=== PATIENT | male | born 1950 | race Caucasian/White ===

== ENCOUNTER 2017-10-03 06:49 | Day surgery (SDC) | payer OTHER ==
[2017-10-03] MEDS ORDERED: ceFAZolin 2 GM/SWFI 2 GM/20 ML SYR IVP ONE (06:55)
[2017-10-03] MEDS ORDERED: LR 1,000 ML IV ONE (06:57)
[2017-10-03] MEDS ORDERED: LIDOCAINE 1% 2 ML INJ ID PRN (06:57)
[2017-10-03] MEDS ORDERED: BUPIVACAINE 0.5% 30 ML SDV ONE (07:00)
[2017-10-03] MEDS ORDERED: fentaNYL 100 MCG/2 ML INJ ONE ×2 (07:05→07:57)
[2017-10-03] MEDS ORDERED: PROPOFOL 200 MG/20 ML VIAL ONE (07:05)
[2017-10-03] MEDS ORDERED: LIDOCAINE 2% 5 ML SDV ONE (07:06)
[2017-10-03] MEDS ORDERED: DEXAMETHASONE 4 MG/ML VIAL ONE (07:06)
[2017-10-03] MEDS ORDERED: ONDANSETRON 4 MG/2 ML VIAL ONE (07:06)
[2017-10-03] MEDS ORDERED: SUGAMMADEX SODIUM 200 MG/2 ML VIAL IVP ONE (07:06)
[2017-10-03] MEDS ORDERED: ROCURONIUM 50 MG/5 ML VIAL ONE (07:06)
[2017-10-03] MEDS ORDERED: KETOROLAC 30 MG/1 ML SDV ONE (07:07)
--- NOTE | 2017-10-03 07:13 | PDHPUP ---
History & Physical Update H&P update statement: This history and physical update is based on an assessment of the patient which was completed after admission or registration (within 24 hours), but prior to the surgery/procedure.
[2017-10-03] MEDS ORDERED: MIDAZOLAM 2 MG/2 ML VIAL IVP ONE (07:25)
--- NOTE | 2017-10-03 07:25 | PDANEPAE ---
ANE History of Present Illness p/f lap inguinal hernia repair ANE Past Medical History - Cardiovascular History Hx Hypertension: No Hx Arrhythmias: No Hx Chest Pain: No Hx Coronary Artery / Peripheral Vascular Disease: No Hx CHF / Valvular Disease: No Hx Palpitations: No - Pulmonary History Hx COPD: No Hx Asthma/Reactive Airway Disease: No Hx Recent Upper Respiratory Infection: No Hx Oxygen in Use at Home: No Hx Sleep Apnea: No Sleep Apnea Screening Result - Last Documented: Negative - Neurologic History Hx Cerebrovascular Accident: No Hx Seizures: No Hx Dementia: No - Endocrine History Hx Diabetes: No Hypothyroid: No Hyperthyroid: No Obesity: no - Renal History Hx Renal Disorders: No - Liver History Hx Hepatic Disorders: No - Neurological & Psychiatric Hx Hx Neurological and Psychiatric Disorders: No Neurological / Psychiatric History Comment: RECENTLY TRANSFERRED FROM [place] FOR JOB - Cancer History Hx Cancer: No - Congenital Disorder History Hx Congenital Disorders: No - GI History Hx Gastrointestinal Disorders: No - Other Health History Other Health History: WEARS GLASSES. DRY SKIN SINCE MOVING TO [place] - Chronic Pain History Chronic Pain: No - Surgical History Prior Surgeries: DEVIATED SEPTUM REPAIR 1979. COLONOSCOPIES X2 ANE Review of Systems Review of systems is: negative Review of Systems: - Exercise capacity METS (RN): 4 METS ANE Patient History - Allergies Allergies/Adverse Reactions: No Allergies [NKDA] Allergy (Verified 10/01/17 14:36) - Home Medications Home medications: home medication list seen and reviewed Home Medications: NK [No Known Home Meds] 10/02/17 [Last Taken Unknown] - Anes Hx Anes Hx: no prior problems - Smoking Hx Smoking Status: Former smoker - Family Anes Hx Family Hx Anesthesia Complications: NONE ANE Labs/Vital Signs - Vital Signs Blood Pressure: 110/63 Heart Rate: 55 Respiratory Rate: 18 O2 Sat (%): 98 Height: 170.18 cm Weight: 66.678 kg ANE Physical Exam - Airway Neck exam: FROM Mallampati Score: Class 1 Mouth exam: normal dental/mouth exam - Pulmonary Pulmonary: no respiratory distress - Cardiovascular Cardiovascular: regular rate and rhythym - ASA Status ASA Status: I ANE Anesthesia Plan Anesthesia Plan: general endotracheal anesthesia
--- NOTE | 2017-10-03 08:53 | POSTOPPROG ---
Post Op Note Date of Operation: 10/03/17 Surgeon: Miquel Snyder Assistant Housekeeping Manager: Ignacia Anesthesiologist: Latanya Pre-op Diagnosis: right inguinal hernia Post-op Diagnosis: same Indication: same Procedure: right inguinal hernia repair Findings: right inguinal hernia, no hernia on left side Inf/Abcess present in the surg proc area at time of surgery?: No EBL: Minimal
[2017-10-03] MEDS ORDERED: HYDROmorphONE/DILAUDID 1 MG/ML INJ IVP PRN (09:10)
[2017-10-03] MEDS ORDERED: ALBUTEROL 3 ML DEYVIAL IH PRN (09:10)
[2017-10-03] MEDS ORDERED: fentaNYL 100 MCG/2 ML INJ IVP PRN (09:10)
[2017-10-03] MEDS ORDERED: HYDROCODONE/APAP 5/325 TAB PO PRN (09:10)
[2017-10-03] MEDS ORDERED: PROMETHAZINE HCL 25 MG/ML INJ IVP PRN (09:10)
[2017-10-03] MEDS ORDERED: ACETAMINOPHEN 500 MG TAB PO PRN (09:10)
[2017-10-03] MEDS ORDERED: ONDANSETRON 4 MG/2 ML VIAL IVP PRN (09:10)
[2017-10-03] MEDS ORDERED: NALOXONE HCL 0.4 MG/ML INJ IVP PRN (09:10)
[2017-10-03] MEDS ORDERED: OXYCODONE/APAP 5/325 TAB PO PRN (09:10)
[2017-10-03] MEDS ORDERED: LR 500 ML IV PRN (09:10)
--- NOTE | 2017-10-03 09:11 | POSTANESTH ---
Post Anesthetic Evaluation Cardiovascular Status: Normal, Stable Respiratory Status: Normal, Stable Level of Consciousness/Mental Status: Can Participate in Eval Pain Control: Adequate, Prn Tx Ordered Nausea/Vomiting Control: Adequate, Prn Tx Ordered Complications Possibly Related to Anesthesia: None Noted
[2017-10-03 09:32] VITALS: RESP 17
[2017-10-03 09:42] VITALS: TEMP 97.9
[2017-10-03 10:50] VITALS: BP 135/71; PULSE 78; O2SAT 97
--- NOTE | 2017-10-04 21:16 | GOP ---
[f rep st] OPERATIVE REPORT DATE OF OPERATION: 10/03/2017 SURGEON: Miquel Snyder MD SCALDER: Evangelina Beth NP. PREOPERATIVE DIAGNOSIS: Symptomatic right inguinal hernia. POSTOPERATIVE DIAGNOSIS: Symptomatic right inguinal hernia. PROCEDURE PERFORMED: Laparoscopic right inguinal hernia repair and exploration of the left. FINDINGS: The patient was found to have a moderate size indirect right inguinal hernia. There was n o evidence of herniation on the left. DESCRIPTION OF PROCEDURE: The patient was taken to the operating room where he received a satisfacto ry general endotracheal anesthesia. He was placed in supine position, prepped and draped in the usua l sterile fashion. An infraumbilical incision was made. Dissection was carried down to the rectus s aníbal. A subfascial tunnel was developed underneath the rectus sheath and it was dissected free with a balloon dissector which was replaced with a CO2 insufflation trocar. Two other trocars were place d in the lower abdominal midline. Juan ligament was exposed bilaterally. The cords were mobilized bilaterally. Peritoneum was dissected off the cord structures on the left. There was no significan t indirect sac or direct defect on the right. A [id number] indirect sac was dissected free fr om the internal ring and reduced. Hemostasis was assured. The Covidien polyester mesh patch was the n placed over the inguinal floor. A split patch was used to pass the limb around the cord structures . The patch was then anchored in place with AbsorbaTack, securing it to Juan ligament, to lacunar ligament, anterior abdominal wall, and the lateral abdominal wall outside the internal ring. Hemosta sis was assured. There were no complications. Trocars were removed under direct vision. Trocar sit es were closed with 0 Vicryl for the fascia, 4-0 Monocryl subcuticular stitch for the skin. All laye rs were infiltrated with 0.5% Marcaine. Blood loss was negligible. He was taken to recovery room in good condition. /[id number]/[id number]
== END 2017-10-03 10:45 | disposition still patient (30) ==
LOC: FSGY 06:49
PROVIDERS: ATTEND Surgery
PROC: 0YQ54ZZ Repair Right Inguinal Region, Percutaneous Endoscopic Approach (ICD-10-PCS; principal; 2017-10-03 08:30)
DX: K40.90 Unilateral inguinal hernia, without obstruction or gangrene, not specified as recurrent (principal)
CPT/HCPCS: C1727; C1781; J0690; J1100; J1200; J1885; J2250; J2405; J2704; J3010